=== PATIENT | female | born 1990 | race Two or more races ===

== ENCOUNTER 2019-09-07 05:35 | Inpatient (IN) | payer OTHER ==
[~2019-09-07] VITALS: Ht 167.6 cm; Wt 82.6 kg
[2019-09-07] MEDS ORDERED: PRENATAL TABLE1 EAC1 PO (06:39)
== END 2019-09-09 13:19 | disposition home or self-care (01) | DRG 807 ==
LOC: OB/GYN 05:35 → LDR 05:35 → OB/GYN 11:18
PROVIDERS: ADMIT Obstetrics & Gynecology
PROC: 10E0XZZ Delivery of Products of Conception, External Approach (ICD-10-PCS; principal; 2019-09-07)
PROC: 10907ZC Drainage of Amniotic Fluid, Therapeutic from Products of Conception, Via Natural or Artificial Opening (ICD-10-PCS; 2019-09-07)
PROC: 0W8NXZZ Division of Female Perineum, External Approach (ICD-10-PCS; 2019-09-07)
PROC: 3E033VJ Introduction of Other Hormone into Peripheral Vein, Percutaneous Approach (ICD-10-PCS; 2019-09-07)
PROC: 4A1HXCZ Monitoring of Products of Conception, Cardiac Rate, External Approach (ICD-10-PCS; 2019-09-07)
DX: O80 Encounter for full-term uncomplicated delivery (principal); Z37.0 Single live birth; Z3A.39 39 weeks gestation of pregnancy

== ENCOUNTER 2021-06-13 07:19 | Outpatient (CLI) | payer OTHER ==
[~2021-06-13 07:19] MED LIST: PRENATAL TABLE1 EAC1 PO
== END 2021-06-13 09:26 | disposition home or self-care (01) ==
LOC: NST 07:19
PROVIDERS: ATTEND Obstetrics & Gynecology
DX: Z34.03 Encounter for supervision of normal first pregnancy, third trimester (principal)

== ENCOUNTER 2021-06-20 07:48 | Inpatient (IN) | payer OTHER ==
[~2021-06-20] VITALS: Ht 167.6 cm; Wt 78.5 kg
[2021-06-20] MEDS ORDERED: NIFEDIPINE10 MG PO (08:30)
== END 2021-06-22 13:17 | disposition home or self-care (01) | DRG 807 ==
LOC: LDR 07:48 → OB/GYN 07:48
PROVIDERS: ADMIT Obstetrics & Gynecology; ATTEND Obstetrics & Gynecology
PROC: 10E0XZZ Delivery of Products of Conception, External Approach (ICD-10-PCS; principal; 2021-06-20)
PROC: 0KQM0ZZ Repair Perineum Muscle, Open Approach (ICD-10-PCS; 2021-06-20)
PROC: 4A1HXFZ Monitoring of Products of Conception, Cardiac Rhythm, External Approach (ICD-10-PCS; 2021-06-20)
DX: O60.14X0 Preterm labor third trimester with preterm delivery third trimester, not applicable or unspecified (principal); Z37.0 Single live birth; O70.1 Second degree perineal laceration during delivery; O62.0 Primary inadequate contractions; Z3A.35 35 weeks gestation of pregnancy